=== PATIENT | female | born 1985 | race Caucasian/White ===

== ENCOUNTER 2025-11-12 05:36 | Emergency (ER) | payer OTHER ==
[~2025-11-12] VITALS: Ht 160 cm; Wt 104.5 kg
[2025-11-12 05:51] VITALS: TEMP 98.4
[2025-11-12 06:25] LABS: CALCIUM, TOTAL 9.4 mg/dL (8.8-10.5); CREATININE 0.82 mg/dL (0.60-1.30); GLOMERULAR FILTR. RATE CALC > 60 mL/min (>60); GLUCOSE,RANDOM 155 mg/dL (70-110); SODIUM SERUM 138 mmol/L (136-145); UREA NITROGEN, BLOOD 7 mg/dL (7-18)
[2025-11-12 06:31] LABS: RED BLOOD CELL COUNT(AUTO) 4.32 MIL/uL (4.00-5.20); RED CELL DISTRIBUTION WIDTH 13.7 % (11.5-14.5); WHITE BLOOD COUNT (AUTO) 11.8 K/uL (4.5-11.0)
[2025-11-12 07:10] LABS: PLATELET COUNT (AUTO) 198 K/uL (150-450)
[2025-11-12 07:20] LABS: ASPARTATE AMINOTRANSFERASE 27.0 U/L (15-37); TOTAL PROTEIN, SERUM 7.8 g/dL (6.4-8.2)
[2025-11-12 07:24] LABS: APPEARANCE,URINE HAZY (CLEAR); GLUCOSE, URINE (UA) NEGATIVE (NEGATIVE); LEUKOCYTE ESTERASE ,URINE MODERATE (NEGATIVE); NITRATE,URINE NEGATIVE (NEGATIVE); OCCULT BLOOD,URINE LARGE (NEGATIVE); SPECIFIC GRAVITIY, URINE 1.024 (1.003-1.030)
[2025-11-12 07:41] LABS: SQUAMOUS EPITHELIAL CELL,UR Few /LPF (None Seen)
[2025-11-12 07:44] VITALS: BP 125/92; PULSE 65; RESP 15; O2SAT 98
[2025-11-12] MEDS: MAG HYDROX/ALUMINUM HYD/SIMETH ES 30 ML SUSPENSION UDCUP PO ONE (08:12)
[2025-11-12] MEDS: CIPROFLOXACIN HCL 250 MG TABLET PO ONE (08:12)
[2025-11-12] MEDS: FAMOTIDINE 20 MG TABLET PO ONE (08:13)
== END 2025-11-12 08:23 | disposition home or self-care (01) ==
LOC: EMS 05:54
DX: R19.7 Diarrhea, unspecified (principal); R10.13 Epigastric pain; J45.909 Unspecified asthma, uncomplicated; F41.9 Anxiety disorder, unspecified; F32.A Depression, unspecified; G43.909 Migraine, unspecified, not intractable, without status migrainosus; Z90.49 Acquired absence of other specified parts of digestive tract
CPT/HCPCS: 80048; 80076; 81001; 82150; 83690; 85025; 85610; 99284